=== PATIENT | female | born 1995 | race Caucasian/White ===

== ENCOUNTER 2020-01-20 04:29 | Emergency (ER) | payer OTHER ==
[~2020-01-20] VITALS: Ht 167.6 cm; Wt 90.2 kg
[2020-01-20 04:30] VITALS: BP 119/83
[2020-01-20] MEDS ORDERED: IV NORMAL SALINE 1,000ML 1,000 ML IV ONE (05:00)
--- NOTE | 2020-01-20 05:04 | PHYS DOC ---
Past History Past Medical History: No Pertinent History (ЮЛИЯ MA DO) Past Surgical History: Other Additional Past Surgical Histo: back x2 (ЮЛИЯ MA DO) Smoking: Cigarettes Alcohol Use: None Drug Use: None (ЮЛИЯ MA DO) General Adult EDM: Chief Complaint: VAGINAL BLEEDING HPI: HPI: 24-year-old female presents with report of vaginal bleeding at approximately 8-9 weeks gestation. Reports has had 2 weeks of intermittent spotting. Awoke this AM at approximately 0300 and noted "a quarter sized" amount of bleeding in her underwear with some associated cramping pain. Denies fever/chills. Denies trauma. Denies nausea or vomiting. (ЮЛИЯ MA DO) Review of Systems: Review of Systems: Constitutional: Denies fever or chills Eyes: Denies redness or eye pain HENT: Denies nasal congestion or sore throat Respiratory: Denies cough or shortness of breath Cardiovascular: Denies chest pain or palpitations GI: Reports pelvic cramping; denies nausea or vomiting /ALGOLOGIST: Denies dysuria or hematuria; reports pelvic pain and vaginal bleeding in Musculoskeletal: Denies back pain or joint pain Integument: Denies rash or skin lesions Neurologic: Denies headache, focal weakness or sensory changes Complete systems were reviewed and found to be within normal limits, except as documented in this note. (ЮЛИЯ MA DO) Current Medications: Current Meds: Current Medications Medications (Trade) Dose Ordered Sig/Ama Start Time Stop Time Status Last Admin Dose Admin Sodium Chloride 1,000 ml @ 1,000 mls/hr 1X ONCE 01/20/20 05:00 01/20/20 05:59 UNV (ЮЛИЯ MA DO) Allergies: Allergies: Allergies Coded Allergies Type Severity Reaction Last Updated Verified No Known Drug Allergies 01/20/20 No (ЮЛИЯ MA DO) Physical Exam: PE: Constitutional: Well developed, well nourished, no acute distress, non-toxic appearance HENT: Normocephalic, atraumatic, oropharynx moist Eyes: Conjunctiva normal, no discharge Neck: Normal range of motion, no tenderness, supple Lungs & Thorax: No respiratory distress, equal chest rise and fall Abdomen: Soft, no tenderness, no guarding/rebound tenderness/distention Skin: Warm, dry, no erythema, no rash Extremities: No tenderness, ROM intact, no edema Neurologic: Alert and oriented X 3, normal motor function, normal sensory function, no focal deficits noted Psychologic: Affect normal, judgment normal (ЮЛИЯ MA DO) Current Patient Data: Labs: Laboratory Tests Test 01/20/20 04:58 POC Urine HCG, Qualitative hcg positive (Negative) Vital Signs: Vital Signs Date Time Temp Pulse Resp B/P (MAP) Pulse Ox O2 Delivery O2 Flow Rate FiO2 01/20/20 04:30 99.3 95 18 119/83 (95) 100 Room Air (ЮЛЯИ MA DO) EKG: EKG: [] (ЮЛИЯ MA DO) Radiology/Procedures: Radiology/Procedures: [] (ЮЛИЯ MA DO) Impressions: OB <14 WKS W/TV Clinical Indication: Pelvic pain, bleeding in . 9 weeks. Comparison: None. TECHNIQUE: Real-time ultrasound imaging of the pelvis using transabdominal and transvaginal window is performed. Findings: Uterus measures 8.9 x 5.9 x 6 cm. There is intrauterine gestational sac. The contour is smooth. No perigestational hemorrhage is appreciated. A pole is identified. No heart tones are detected. A yolk sac is not seen. [place]-rump length 0.6 cm, 6 weeks and 3 days. EDC ultrasound is 09/11/2020. The maternal ovaries are symmetric in size and demonstrate normal blood flow. IMPRESSION: Intrauterine gestational sac containing a pole is seen. No heart tones are detected. Considerations include failed first trimester versus early normal intrauterine . Suggest serial quantitative beta hCG with short-term follow-up ultrasound as needed. Electronically signed by: Andreas Barnett MD (01/20/2020 6:27 AM) [id number] DICTATED AND SIGNED BY: ANDREAS BARNETT MD DATE: 01/20/20 0627 CC: JULIUS DEL ROSARIO DO; PCP,NO; ЮЛИЯ MA DO ~ (JULIUS DEL ROSARIO DO) Course & Med Decision Making: Course & Med Decision Making Pertinent Labs and Imaging studies reviewed. (See chart for details) presents at approximately 8-9 weeks gestation with report of vaginal bleeding and cramping. Labs obtained and pending at this time. OB ultrasound also pending. Sign out given to Dr. Del Rosario for further evaluation and final disposition. Discussed current findings and plan with patient, who acknowledges understanding and agreement. (ЮЛИЯ MA DO) Course & Med Decision Making The patient's ultrasound does show an intrauterine , however there is no heartbeat. This is likely a spontaneous . On pelvic exam, there was bloody discharge though the cervix was not visualized. I have advised the patient to have her beta hCG repeated in 48 hours and to follow-up with OB. (JULIUS DEL ROSARIO DO) Dragon Disclaimer: Dragon Disclaimer: This electronic medical record was generated, in whole or in part, using a voice recognition dictation system. (ЮЛИЯ MA DO) Departure Departure: Impression: Primary Impression: Spontaneous miscarriage Disposition: HOME, SELF-CARE Condition: STABLE Referrals: PCP,MARTINE (PCP) Patient Instructions: Miscarriage, [id number] ЮЛИЯ MA DO January 20, 2020 05:04 JULIUS DEL ROSARIO DO January 20, 2020 06:38
[2020-01-20 05:46] LABS: BASO # 0.1 x10^3/uL (0.0-0.2); BASO % 1 % (0-3); EOS # 0.3 x10^3/uL (0.0-0.7); EOS % 2 % (0-3); HEMATOCRIT 41.7 % (36.0-47.0); HEMOGLOBIN 13.9 g/dL (12.0-15.5); LYMPH # 2.4 x10^3/uL (1.0-4.8); LYMPH % 19 % (24-48); MEAN CORPUSCULAR HEMOGLOBIN 29 pg (25-35); MEAN CORPUSCULAR HGB CONC 33 g/dL (31-37); MEAN CORPUSCULAR VOLUME 88 fL (79-100); MONO # 0.8 x10^3/uL (0.0-1.1); MONO % 6 % (0-9); NEUT # 9.1 x10^3uL (1.8-7.7); NEUT % 72 % (31-73); PLATELET COUNT 229 x10^3/uL (140-400); RED BLOOD COUNT 4.74 x10^6/uL (3.50-5.40); RED CELL DISTRIBUTION WIDTH 15.4 % (11.5-14.5); WHITE BLOOD COUNT 12.6 x10^3/uL (4.0-11.0)
[2020-01-20 05:51] LABS: CALCIUM 9.3 mg/dL (8.5-10.1); CREATININE 0.7 mg/dL (0.6-1.0); GFR 102.8; POTASSIUM 3.9 mmol/L (3.5-5.1)
[2020-01-20 05:55] LABS: BILIRUBIN,URINE NEG (NEG); CLARITY,URINE HAZY; COLOR,URINE YELLOW; GLUCOSE,URINE NEG (NEG)
[2020-01-20 05:56] LABS: BACTERIA,URINE MOD /HPF (0-FEW); NITRITE,URINE NEG (NEG); UROBILINOGEN,URINE 0.2 mg/dL (0.2 mg/dL)
[2020-01-20 05:57] LABS: SQUAMOUS EPITHELIAL CELL,UR FEW /LPF
[2020-01-20 05:57] LABS: ALBUMIN 3.9 g/dL (3.4-5.0); ALBUMIN/GLOBULIN RATIO 1.1 (1.0-1.7); TOTAL BILIRUBIN 0.2 mg/dL (0.2-1.0); TOTAL PROTEIN 7.3 g/dL (6.4-8.2)
--- NOTE | 2020-01-20 06:30 | RAD ---
OB <14 WKS W/TV Clinical Indication: Pelvic pain, bleeding in . 9 weeks. Comparison: None. TECHNIQUE: Real-time ultrasound imaging of the pelvis using transabdominal and transvaginal window is performed. Findings: Uterus measures 8.9 x 5.9 x 6 cm. There is intrauterine gestational sac. The contour is smooth. No perigestational hemorrhage is appreciated. A pole is identified. No heart tones are detected. A yolk sac is not seen. [place]-rump length 0.6 cm, 6 weeks and 3 days. EDC ultrasound is 09/11/2020. The maternal ovaries are symmetric in size and demonstrate normal blood flow. IMPRESSION: Intrauterine gestational sac containing a pole is seen. No heart tones are detected. Considerations include failed first trimester versus early normal intrauterine . Suggest serial quantitative beta hCG with short-term follow-up ultrasound as needed. Electronically signed by: Andreas Barnett MD (01/20/2020 6:27 AM) [id number]
[2020-01-21 16:07] LABS: CHLAMYDIA PROBE Negative (Negative)
== END 2020-01-20 08:06 | disposition home or self-care (01) ==
LOC: ER 04:29
DX: O03.9 Complete or unspecified spontaneous abortion without complication (principal); O99.331 Smoking (tobacco) complicating pregnancy, first trimester; Z3A.01 Less than 8 weeks gestation of pregnancy
CPT/HCPCS: 36415; 36430; 76801; 76817; 80053; 81001; 81025; 83690; 84702; 85025; 86850; 86900; 86901; 87086; 87491; 87591; 99285; J2791; Q0111; J7030

== ENCOUNTER 2020-01-24 12:26 | Emergency (ER) | payer OTHER ==
[~2020-01-24] VITALS: Ht 167.6 cm; Wt 90.2 kg
[2020-01-24 12:27] VITALS: BP 119/83
[2020-01-24 13:18] LABS: BASO # 0.1 x10^3/uL (0.0-0.2); BASO % 1 % (0-3); EOS # 0.3 x10^3/uL (0.0-0.7); EOS % 4 % (0-3); HEMATOCRIT 39.4 % (36.0-47.0); HEMOGLOBIN 12.9 g/dL (12.0-15.5); LYMPH # 1.8 x10^3/uL (1.0-4.8); LYMPH % 23 % (24-48); MEAN CORPUSCULAR HEMOGLOBIN 29 pg (25-35); MEAN CORPUSCULAR HGB CONC 33 g/dL (31-37); MEAN CORPUSCULAR VOLUME 88 fL (79-100); MONO # 0.5 x10^3/uL (0.0-1.1); MONO % 7 % (0-9); NEUT # 5.1 x10^3uL (1.8-7.7); NEUT % 65 % (31-73); PLATELET COUNT 260 x10^3/uL (140-400); RED BLOOD COUNT 4.46 x10^6/uL (3.50-5.40); WHITE BLOOD COUNT 7.8 x10^3/uL (4.0-11.0)
--- NOTE | 2020-01-24 13:23 | PHYS DOC ---
Past History Past Medical History: No Pertinent History Past Surgical History: Other Additional Past Surgical Histo: back x2 Smoking: Cigarettes Alcohol Use: None Drug Use: None General Adult EDM: Chief Complaint: ABDOMINAL PAIN HPI: HPI: 24-year-old F presents to the ED as a bounce back with concern for vaginal bleeding in the setting of a prior positive test. C/o "cramping" lower abdominal pain - similar to 4 days ago. Patient states bleeding has decreased but she did a manual exam on herself and feels as if she has products coming out of her cervical office. EMR reviewed-pt was seen here 01/19 with hcg quant near 28,000, TVUS showing intrauterine gestational sac with pole, no heart tones. No recent sexual intercourse, declines STI testing. Chlamydia and gonorrhea were negative on prior ED visit. ROS: Denies associated fever, chills, cough, dyspnea, hemoptysis, chest pain or pressure, nausea, vomiting, diarrhea, abnormal vaginal dc/odor/pruritis, ankle pain, back pain, neck stiffness. Allergies: Allergies: Allergies Coded Allergies Type Severity Reaction Last Updated Verified No Known Drug Allergies 01/20/20 No Physical Exam: PE: Constitutional: Well developed, well nourished, no acute distress, non-toxic appearance. in no significant pain, ambulating steady HENT: Normocephalic, atraumatic, bilateral external ears normal, oropharynx moist, no oral exudates, nose normal. [] Eyes: PERRLA, EOMI, conjunctiva normal, no discharge. [] Neck: Normal range of motion, no tenderness, supple, no stridor. [] Cardiovascular:Heart rate regular rhythm, no murmur [] Lungs & Thorax: Bilateral breath sounds clear to auscultation [] Abdomen: Bowel sounds normal, soft, no tenderness, no masses, no pulsatile masses. [] Skin: Warm, dry, no erythema, no rash. no cyanosis or pallor Back: No tenderness, no CVA tenderness. [] Extremities: No tenderness, no cyanosis, no clubbing, ROM intact, no edema. [] Neurologic: Alert and oriented X 3, normal motor function, normal sensory function, no focal deficits noted. [] Psychologic: Affect normal, judgement normal, mood normal. [] PELVIC: chaperoned by automobile service station manager, external genitalia normal, no rash, moderate vaginal bleeding in vaginal vault, cervical loss closed, no CMT or adnexal tenderness, Current Patient Data: Labs: Vital Signs: HD stable EKG: EKG: [] Radiology/Procedures: Radiology/Procedures: []IMAGING REPORT Signed PATIENT: SIMON JJ RACCOUNT: [id number] : 1995 LOCATION: ER AGE: 24 SEX: F EXAM STATUS: REG ER ORD. PHYSICIAN: RONNIE KEY DO REASON: SAB PROCEDURE: US PELVIS W/TV US PELVIS W/TV: 01/24/2020 1:03 PM INDICATION: 24 years old Female. SAB. COMPARISON: None. TECHNIQUE: Transabdominal and transvaginal sonographic evaluation of the pelvis was performed. Grayscale, color Doppler and spectral waveform analysis were utilized. FINDINGS: UTERUS: Size: 9.6 x 6.6 x 5.2 cm. Masses: None. Endometrium: 9 mm. No suspicious vascularity is identified. Gestational sac is not visualized. RIGHT OVARY: 3.5 x 2.0 x 2.1 cm. Ovary is normal in appearance. LEFT OVARY: 3.0 x 1.9 x 1.9 cm. Ovary is normal in appearance. Arterial and venous waveform are identified within the ovaries bilaterally at the time of imaging. FREE FLUID: Trace free fluid is identified within the cul-de-sac and bilateral adnexa. URINARY BLADDER: Unremarkable. IMPRESSION: Gestational sac is not visualized. Differential considerations include very early versus failure versus ectopic . Short-term follow-up beta hCG and pelvic ultrasound may be of benefit. Nonspecific trace free fluid identified within the cul-de-sac and adnexa. Electronically signed by: Ariane Garcia MD (01/24/2020 2:10 PM) [id number] Impressions: Impression: Concern for incomplete , os closed. Hcg trending down. TVUS w/trace fluid in cul-de sac. Blood type A-, was given rhogam on prior ed. I recommend PMD follow-up in 24 to 48 hours. Strict ED return precautions for severe pain, vaginal bleeding, dyspnea on exertion or syncope. All of patient's questions were answered and she was stable at time of discharge. I spoken with the patient and her caregivers. I explained the patient's condition, diagnoses and treatment plan based on the information available to me at this time. I have answered the patient and her caregiver's questions and addressed any concerns. The patient and her caregivers have a good understanding of patient's diagnosis, condition and treatment plan as can be expected at this point. Vital signs have been stable. Patient's condition is stable and appropriate for discharge from the emergency department. Patient will pursue further outpatient evaluation with primary care physician or other designated or consulting physician as outlined in the discharge instru ctions. The patient and/or caregivers are agreeable to this plan of care and follow-up instructions have been explained in detail. The patient and/or caregivers have received these instructions in written form and have expressed an understanding of the discharge instructions. The patient and/or caregivers are aware that any significant change of condition or worsening of symptoms should prompt immediate return to this or the closest emergency department or call to 911. Course & Med Decision Making: Course & Med Decision Making Pertinent Labs and Imaging studies reviewed. (See chart for details) [] Kerri Disclaimer: Kerri Disclaimer: This electronic medical record was generated, in whole or in part, using a voice recognition dictation system. Departure Departure: Impression: Primary Impression: Incomplete Disposition: HOME, SELF-CARE Condition: STABLE Referrals: PCP,NO (PCP) Patient Instructions: Incomplete Miscarriage RONNIE KEY DO January 24, 2020 13:23
[2020-01-24 13:30] LABS: CALCIUM 9.3 mg/dL (8.5-10.1); CREATININE 0.7 mg/dL (0.6-1.0); GFR 102.8; POTASSIUM 3.9 mmol/L (3.5-5.1)
[2020-01-24 13:36] LABS: ALBUMIN 3.7 g/dL (3.4-5.0); TOTAL BILIRUBIN 0.2 mg/dL (0.2-1.0); TOTAL PROTEIN 7.3 g/dL (6.4-8.2)
--- NOTE | 2020-01-24 14:13 | RAD ---
US PELVIS W/TV: 01/24/2020 1:03 PM INDICATION: 24 years old Female. SAB. COMPARISON: None. TECHNIQUE: Transabdominal and transvaginal sonographic evaluation of the pelvis was performed. Grayscale, color Doppler and spectral waveform analysis were utilized. FINDINGS: UTERUS: Size: 9.6 x 6.6 x 5.2 cm. Masses: None. Endometrium: 9 mm. No suspicious vascularity is identified. Gestational sac is not visualized. RIGHT OVARY: 3.5 x 2.0 x 2.1 cm. Ovary is normal in appearance. LEFT OVARY: 3.0 x 1.9 x 1.9 cm. Ovary is normal in appearance. Arterial and venous waveform are identified within the ovaries bilaterally at the time of imaging. FREE FLUID: Trace free fluid is identified within the cul-de-sac and bilateral adnexa. URINARY BLADDER: Unremarkable. IMPRESSION: Gestational sac is not visualized. Differential considerations include very early versus failure versus ectopic . Short-term follow-up beta hCG and pelvic ultrasound may be of benefit. Nonspecific trace free fluid identified within the cul-de-sac and adnexa. Electronically signed by: Ariane Garcia MD (01/24/2020 2:10 PM) [id number]
== END 2020-01-24 15:26 | disposition home or self-care (01) ==
LOC: ER 12:26
DX: O03.4 Incomplete spontaneous abortion without complication (principal); O99.331 Smoking (tobacco) complicating pregnancy, first trimester; R10.30 Lower abdominal pain, unspecified; F17.200 Nicotine dependence, unspecified, uncomplicated; Z98.890 Other specified postprocedural states
CPT/HCPCS: 36415; 76830; 76856; 80053; 84702; 85025; 99284; 99285